=== PATIENT | male | born 1965 | race Caucasian/White ===

== ENCOUNTER 2023-01-26 09:50 | Emergency (ER) | payer BC, SELFPAY ==
[2023-01-26] VITALS (12 sets, daily range): BP systolic 146–188; BP diastolic 75–93; PULSE 56–66; RESP 12–20; TEMP 36.7–36.8; O2SAT 96–100; BMI 28.7; BMI 28.8
--- NOTE | 2023-01-26 09:54 | ECG_ITS ---
APPROVED REPORT Exam: Resting ECG HR:62 bpm ECG Measurements Heart Rate 62 AXES VT 135 P 63 QRSd 82 QRS -5 QT 390 T 36 QTc 395 Conclusion SINUS RHYTHM NORMAL ECG UNCONFIRMED REPORT Electronically signed by : Karlos Sheehan MD 01/26/2023 18:31:26
--- NOTE | 2023-01-26 09:59 | CT_ITS ---
FINAL REPORT TECHNIQUE: Axial CT images were performed through the head. Coronal reformatted images were submitted. This study was performed with techniques to keep radiation doses as low as reasonably achievable (ALARA). Individualized dose reduction techniques using automated exposure control or adjustment of mA and/or kV according to the patient's size were employed. CLINICAL HISTORY: stroke protocol COMPARISON: None FINDINGS: The ventricles are normal in size. There is no evidence of hemorrhage. There is no mass or edema identified. There is no abnormal extra-axial fluid seen. There are mild retention cyst or polyps in both maxillary sinuses. IMPRESSION: No acute intracranial process. Reviewed, Interpreted and Dictated by Derick Mata MD Transcribed by Shannon Murphy Authenticated and [facility]
--- NOTE | 2023-01-26 10:06 | PC.NURSE ---
pt to CT
--- NOTE | 2023-01-26 10:08 | CT_ITS ---
FINAL REPORT TECHNIQUE: thin section axial CT with and without IV contrast supplemented with multiplanar 3-D reconstruction of the head. This study was performed with techniques to keep radiation doses as low as reasonably achievable, (ALARA)individualized dose reduction techniques using automated exposure control or adjustment of mA and/or kV according to the patient's size were employed. CLINICAL HISTORY: cva rule out. dysarthria COMPARISON: None FINDINGS: CTA: The cranial circulation is unremarkable. Normal intracranial branching pattern. No segmental stenosis. No evidence of aneurysm. IMPRESSION: No evidence of significant stenosis or large vessel occlusion. Diffusion weighted MRI may be of value. Reviewed, Interpreted and Dictated by Derick Mata MD Transcribed by Shannon Murphy Authenticated and [facility]
--- NOTE | 2023-01-26 10:08 | CT_ITS ---
FINAL REPORT TECHNIQUE: NASCET technique utilized for stenosis evaluation. CLINICAL HISTORY: dysarthria, resolved COMPARISON: None FINDINGS: RIGHT CAROTID: There are mild vascular calcifications in the proximal right internal carotid artery. No significant stenosis. The carotid bifurcation is widely patent. LEFT CAROTID: No significant stenosis seen of the cervical common or internal carotid artery. The carotid bifurcation is widely patent. VERTEBRALS: The vertebrals are patent. No significant stenosis is present. IMPRESSION: No evidence of significant stenosis or large vessel occlusion. Diffusion weighted MRI may be of value Reviewed, Interpreted and Dictated by Derick Mata MD Transcribed by Shannon Murphy Authenticated and [facility]
--- NOTE | 2023-01-26 10:11 | HMH.ITSTN ---
patient is diabetic but ER doctor did not want us waiting on labs
[2023-01-26 10:24] LABS: Basophils # 0.1 K/mm3 (0-0.2); Basophils % 0.4 % (0.1-2.0); Eosinophils # 0.1 K/mm3 (0.0-0.4); Eosinophils % 1.1 % (0.1-12.0); Hematocrit 46.7 % (42.0-52.0); Hemoglobin 15.7 g/dL (14.1-18.0); Lymphocytes % 24.1 % (10-50); Mean Corpuscular HGB Conc 33.7 g/dL (31.8-35.4); Mean Corpuscular Hemoglobin 31.3 pg (27.0-31.2); Mean Platelet Volume 10.4 fl (7.4-10.4); Monocytes # 0.4 K/mm3 (0.1-1.0); Neutrophils # 8.8 K/mm3 (1.8-7.8); Neutrophils % 71.4 % (37.0-80.0); Platelet Count 187 K/mm3 (142-424); Red Blood Count 5.02 M/mm3 (4.60-6.20); Red Cell Distribution Width 13.7 % (11.5-17.5); White Blood Count 12.3 K/mm3 (4.8-10.8)
[2023-01-26 10:28] LABS: Activated Partial Thrombo Time 25.8 seconds (22.8-30.6); INR 0.97 (0.9-1.1); Prothrombin Time 10.5 seconds (10.1-12.5)
--- NOTE | 2023-01-26 10:36 | HMH.EDGENADL ---
Discharge Plan Disposition Chief Complaint: Neuro Symptoms/Deficit Prescriptions Prescriptions: No Action gabapentin 600 mg Tablet 600 mg PO DAILY amlodipine 5 mg Tablet 5 mg PO DAILY allopurinol 300 mg Tablet 300 mg PO DAILY lisinopril 40 mg Tablet 40 mg PO DAILY sertraline 50 mg Tablet 50 mg PO DAILY metformin 500 mg Tablet Extended Release 24hr 500 mg PO BID Referrals Follow up/Referrals: Fito Cisneros [Primary Care Provider] - See instructions Clinical Impressions Clinical Impression: Dysarthria, TIA (transient ischemic attack) Discharge ED Provider: Arya Schmidt General Adult HPI General Chief complaint: Neuro Symptoms/Deficit Stated complaint: STROKE LIKE SYMPTOMS Time Seen by Provider: 01/26/23 10:02 Mode of Arrival: Family Vehicle Source of Information: Patient, Spouse and Medical Record Limitations: No Limitations Description of Symptoms (Recalled from ER Triage Doc. by RN): Pt presents to ER with reports of I think I had a stroke . States when he woke up about 0520 this AM and had difficulty talking and swallowing. States it started to clear up about 0600. He reports to be diabetic but has not checked his blood dugar in some time, he did eat 3 chocolate chip cookie. No dissues with his limbs or sensation. NIHSS 0 at this time. History of Present Illness HPI narrative: This is a 57-year-old male with history of hypertension hyperlipidemia, diabetes treating other comorbidities presenting with multiple complaints. Patient states that he woke up around 4 AM and did not feel right. Shortly thereafter, had numbness in his tongue, his face, was unable to express himself verbally, but did not have confusion and knew it was going on. States that he had upper extremity bilateral tingling and weakness, but no lower extremity symptoms. Patient was unable to swallow or talk correctly for a couple of hours and this is largely resolved around 7 or 8 AM. After talking with , came to the ER for further evaluation. Currently back at baseline Related Data Home Medications Medication Instructions Recorded Confirmed allopurinol 300 mg tablet 300 mg PO DAILY . 01/26/23 01/26/23 amlodipine 5 mg tablet 5 mg PO DAILY Hypertension 01/26/23 01/26/23 gabapentin 600 mg tablet 600 mg PO DAILY . 01/26/23 01/26/23 lisinopril 40 mg tablet 40 mg PO DAILY Hypertension 01/26/23 01/26/23 metformin 500 mg tablet,extended 500 mg PO BID Diabetes 01/26/23 01/26/23 release 24hr sertraline 50 mg tablet 50 mg PO DAILY mood 01/26/23 01/26/23 Allergies Allergy/AdvReac Type Severity Reaction Status Date / Time No Known Allergies Allergy Verified 06/11/17 15:55 [facility] Disclaimer: The information contained in this section may have been updated after the patient was seen, as this information can be updated by other users. Social History Smoking Status: Current every day smoker alcohol intake: current substance use type: denies use current occupational status: unemployed Travel in the last 8 weeks: None ROS Obtained: Yes All systems reviewed & no additional complaints except as documented Physical Exam General General appearance: alert, in no apparent distress and other ( ) Head Head exam: atraumatic and normocephalic Eye Eye exam: Present normal appearance, PERRL and EOMI ENT ENT exam: Present mucous membranes moist Neck Neck exam: Present normal inspection, full ROM and trachea midline Respiratory Respiratory exam: Absent respiratory distress, wheezes, stridor, accessory muscle use or prolonged expiratory phase Cardiovascular Cardiovascular exam: Present regular rate and normal rhythm Abdominal Exam Abdominal exam: Present soft; Absent distention, tenderness, guarding, rebound, rigidity or normal bowel sounds Extremities Exam Extremities exam: Absent edema Neurological Exam Neurological exam: Present alert, oriented X3, CN II-XII intact and normal gait; Absent
[2023-01-26 10:43] LABS: Chol/HDL Ratio 3.5 (1-3.5); Cholesterol 138 mg/dl (140-200); HDL Cholesterol 40 mg/dl (40-60); Triglycerides 165 mg/dl (30-150); VLDL Cholesterol 33 mg/dL (0-40)
[2023-01-26 10:45] LABS: Alanine Aminotransferase 25 U/L (12-78); Albumin Level 4.3 g/dl (3.5-5.0); Albumin/Globulin Ratio 1.8 (1.1-1.8); Alkaline Phosphatase 62 U/L (38-126); Anion Gap 13.2 mEq/L (5-15); Aspartate Amino Transferase 34 U/L (17-59); Bilirubin,Total 0.4 mg/dl (0.2-1.3); Blood Urea Nitrogen 15 mg/dl (9-20); Carbon Dioxide 29 mmol/L (22.0-30.0); Chloride 102 mmol/L (98-107); Creatinine Clearance Estimated 115 mL/min (50-200); Estimated Glomerular Filt Rate 87 ml/min (>60); GFR (African American) 105 ML/MIN (>60); Globulin 2.4 g/dL (1.3-3.2); Glucose 126 mg/dl (74-100); Potassium 4.2 mmoL/L (3.5-5.1); Sodium 140 mmol/L (136-145); Total Protein,Serum 6.7 g/dl (6.3-8.2)
[2023-01-26 10:53] LABS: Direct LDL Cholesterol 74.31 mg/dL (100-129)
[2023-01-26 10:57] LABS: Troponin I < 0.01 ng/ml (0.00-0.034)
--- NOTE | 2023-01-26 12:42 | EXP.HP ---
[facility] Disclaimer: The information contained in this section may have been updated after the patient was seen, as this information can be updated by other users. Social History Smoking Status: Current every day smoker alcohol intake: current substance use type: denies use Meds Home Medications and Allergies Home Medications Medication Instructions Recorded Confirmed Type allopurinol 300 mg tablet 300 mg PO DAILY . 01/26/23 01/26/23 History amlodipine 5 mg tablet 5 mg PO DAILY Hypertension 01/26/23 01/26/23 History gabapentin 600 mg tablet 600 mg PO DAILY . 01/26/23 01/26/23 History lisinopril 40 mg tablet 40 mg PO DAILY Hypertension 01/26/23 01/26/23 History metformin 500 mg tablet,extended 500 mg PO BID Diabetes 01/26/23 01/26/23 History release 24hr sertraline 50 mg tablet 50 mg PO DAILY mood 01/26/23 01/26/23 History New Prescriptions to Start Prescriptions: Allergies Allergy/AdvReac Type Severity Reaction Status Date / Time No Known Allergies Allergy Verified 06/11/17 15:55 Exam Data for Last 24 hours Vital signs and Labs for Last 24 Hours: Temp Pulse Resp BP Pulse Ox O2 Del Method 98.3 F 62 20 152/78 H 98 Room Air 01/26/23 09:52 01/26/23 10:31 01/26/23 09:52 01/26/23 10:31 01/26/23 10:31 01/26/23 09:52 Laboratory Results - last 24 hr 01/26/23 09:12: WBC 12.3 H, RBC 5.02, Hgb 15.7, Hct 46.7, MCV 93.0, MCH 31.3 H, MCHC 33.7, RDW 13.7, Plt Count 187, MPV 10.4, Neut % (Auto) 71.4, Lymph % (Auto) 24.1, Love % (Auto) 3.0, Eos % (Auto) 1.1, Baso % (Auto) 0.4, Neut # (Auto) 8.8 H, Lymph # (Auto) 3.0, Love # (Auto) 0.4, Eos # (Auto) 0.1, Baso # (Auto) 0.1, PT 10.5, INR 0.97, APTT 25.8, Sodium 140, Potassium 4.2, Chloride 102, Carbon Dioxide 29, Anion Gap 13.2, BUN 15, Creatinine 0.90, Estimated Creat Clear 115, Estimated GFR 87, Est GFR ( Amer) 105, Glucose 126 H, Calcium 9.0, Total Bilirubin 0.4, AST 34, ALT 25, Alkaline Phosphatase 62, Troponin I < 0.01, Total Protein 6.7, Albumin 4.3, Globulin 2.4, Albumin/Globulin Ratio 1.8, Triglycerides 165 H, Cholesterol 138 L, LDL Cholesterol Direct 74.31 L, VLDL Cholesterol 33, HDL Cholesterol 40, Cholesterol/HDL Ratio 3.5 I & O for Last 24 hours: Intake & Output 01/23/23 01/24/23 01/25/23 01/26/23 23:59 23:59 23:59 23:59 Weight 90.718 kg
--- NOTE | 2023-01-26 13:05 | MR_ITS ---
FINAL REPORT CLINICAL HISTORY: tia stroke like symptoms FINDINGS: Multi planar MR imaging was obtained through the brain without contrast. The midline structures appear intact. There is no evidence of Chiari malformation. On T2 and flair axial images the brain parenchyma is homogeneous. On diffusion-weighted images there is no evidence of restricted diffusion. There are few small retention cysts or polyps in the maxillary sinuses. The seventh and eighth nerve root complexes are intact. IMPRESSION: No acute intracranial abnormality. Small retention cysts or polyps in the maxillary sinuses. Reviewed, Interpreted and Dictated by Derick Mata MD Transcribed by Milena Tamayo Authenticated and [facility]
--- NOTE | 2023-01-26 13:13 | PC.NURSE ---
notified care management of admission, also notified them of MRI ordered-okayed MRI per a. massimo notified MRI staff that care management approved MRI
--- NOTE | 2023-01-26 13:15 | PC.NURSE ---
updated pt on POC- admission and MRI
--- NOTE | 2023-01-26 13:49 | HMH.PHAINT1 ---
Pharmacy Intervention Comments: MEDICATION RECONCILIATION COMPLETED ON PATIENT USING EXTERNAL FILL HISTORY FROM PHARMACY. -JASE HERNANDEZ, ABIELD
--- NOTE | 2023-01-26 13:52 | PC.NURSE ---
Report called to DOMINGUEZ Cruz at this time. Pt is still in MRI
[2023-01-26 16:09] LABS: Hemoglobin A1C 5.4 % (4.0-6.0)
[2023-01-26 16:09] LABS: Troponin I < 0.01 ng/ml (0.00-0.034)
--- NOTE | 2023-01-26 16:30 | EXP.HPDC ---
General Admission date:: 01/26/23 Discharge date: 01/26/23 *Admission Date: 01/26/23 *Chief complaint: dysarthria *History of present illness: Mr. Augustin is a 57 year old male with a past medical history of hypertension, hyperlipidemia, diabetes mellitus, gout, cannibus use disorder, depression, anxiety and panic disorder. He woke up in the morning with a sense of impending doom and multiple other symptoms including dysarthria, difficulty swallowing and heaviness in bilateral arms. His thought she noticed a mild R sided facial droop at this time. These symptoms lasted for approximately 30-40 minutes. The patient was worked up for stroke in the ER; CT of the head and CTAs of the head and neck were unremarkable. [facility] Disclaimer: The information contained in this section may have been updated after the patient was seen, as this information can be updated by other users. Medical History (Updated 01/30/23 @ 00:00 by Kayla Hughes) Anxiety Diabetes mellitus type 2 in nonobese Gout History of fractured kneecap HTN (hypertension) Family History (Updated 01/26/23 @ 14:41 by Caitlyn Crowley RN) Other FH: brain aneurysm FH: cancer FH: heart attack Social History (Updated 01/26/23 @ 15:17 by Caitlyn Crowley RN) Smoking Status: Current every day smoker alcohol intake: current substance use type: denies use current occupational status: employed Travel in the last 8 weeks: None Review of Systems Review of Systems Review of systems:: pertinent systems reviewed and negative unless documented below *Musculoskeletal Musculoskeletal: Reports muscle weakness and Reports numbness *Neurologic Neurologic: Reports abnormal speech, Reports numbness and Reports tremor(s) Exam Data for Last 24 hours Vital signs and Labs for Last 24 Hours: Temp Pulse Resp BP Pulse Ox O2 Del Method O2 Flow Rate 98.1 F 57 L 18 164/79 H 100 Room Air 98 01/26/23 15:08 01/26/23 15:08 01/26/23 15:08 01/26/23 15:08 01/26/23 14:18 01/26/23 16:09 01/26/23 15:00 Laboratory Results - last 24 hr 01/26/23 09:12: WBC 12.3 H, RBC 5.02, Hgb 15.7, Hct 46.7, MCV 93.0, MCH 31.3 H, MCHC 33.7, RDW 13.7, Plt Count 187, MPV 10.4, Neut % (Auto) 71.4, Lymph % (Auto) 24.1, [place] % (Auto) 3.0, Eos % (Auto) 1.1, Baso % (Auto) 0.4, Neut # (Auto) 8.8 H, Lymph # (Auto) 3.0, [place] # (Auto) 0.4, Eos # (Auto) 0.1, Baso # (Auto) 0.1, PT 10.5, INR 0.97, APTT 25.8, Sodium 140, Potassium 4.2, Chloride 102, Carbon Dioxide 29, Anion Gap 13.2, BUN 15, Creatinine 0.90, Estimated Creat Clear 115, Estimated GFR 87, Est GFR ( Amer) 105, Glucose 126 H, Hemoglobin A1c 5.4, Calcium 9.0, Total Bilirubin 0.4, AST 34, ALT 25, Alkaline Phosphatase 62, Troponin I < 0.01, Total Protein 6.7, Albumin 4.3, Globulin 2.4, Albumin/Globulin Ratio 1.8, Triglycerides 165 H, Cholesterol 138 L, LDL Cholesterol Direct 74.31 L, VLDL Cholesterol 33, HDL Cholesterol 40, Cholesterol/HDL Ratio 3.5 01/26/23 15:17: Troponin I < 0.01 I & O for Last 24 hours: Intake & Output 01/23/23 01/24/23 01/25/23 01/26/23 23:59 23:59 23:59 23:59 Weight 91.2 kg Constitutional Constitutional: no acute distress *Routine HEENT Exam Head: Present normocephalic Eye: Present EOMI and PERRL ENT: Present mucous membranes moist *Routine Neck Exam Neck: Present supple; Absent lymphadenopathy *Routine Respiratory Exam Respiratory: Present CTA bilaterally *Routine Cardiovascular Exam Cardiovascular: Present RRR *Routine Abdominal Exam Abdominal: Present soft and normoactive bowel sounds; Absent tenderness *Routine Rectal Exam Rectal:: deferred *Routine Genitalia Exam Genitalia:: deferred *Routine Extremities Exam Extremities: Absent cyanosis, clubbing or edema *Routine Skin Exam Skin: Present warm; Absent rash *Routine Neurological Exam Neurological: Present alert and oriented X3 Meds Home Medications and Allergies Home Medications Medication Instructions Recorded Con
--- NOTE | 2023-01-27 13:35 | CARE MANAGER ---
Contacted patient related to hospital discharge. Patient states he is only at work and only has a minute. He has not made a follow up appt. yet, but will. He did not have any new medications and denies questions and concerns. DOMINGUEZ Smyth
== END 2023-01-26 15:13 | disposition admitted as inpatient to this hospital (09) ==
LOC: ER 10:42 → 2ND 15:08 → ER 02-01 08:28
PROVIDERS: Emergency Medicine; Emergency Provider Internal Medicine; PCP Family Medicine; Visit Provider Internal Medicine
DX: G45.9 Transient cerebral ischemic attack, unspecified (principal); I10 Essential (primary) hypertension; E78.5 Hyperlipidemia, unspecified; E11.9 Type 2 diabetes mellitus without complications; F17.200 Nicotine dependence, unspecified, uncomplicated
CPT/HCPCS: 70450; 70496; 70498; 70551; 80053; 80061; 83036; 84484; 85025; 85610; 85730; 93005; 96360; 99285; G0378; Q9967